=== PATIENT | male | born 1995 | race African-American/Black ===

== ENCOUNTER 2024-09-20 18:04 | Inpatient (IN) ==
--- NOTE | 2024-09-20 18:17 | Emergency Department Note ---
Impression & Plan Atrial fibrillation with rapid ventricular response, Chest pain, Shortness of breath, Elevated troponin ED Provider Note HISTORY OF PRESENT ILLNESS: Patient is a 29-year-old male presenting with chest pain and shortness of breath. Patient presents from nursing home where he states that at 9:40 AM he was out in the yard when he suddenly got the sensation that his heart was racing and he felt very short of breath. He thought that maybe he was just having an asthma attack and had requested to go to medical but was unable to get there until around 1600 secondary to a nursing home lockdown. At 1654 the patient was seen in the [facility] and an EKG was obtained which showed the patient was in A-fib with RVR. Patient reports he has no history of atrial fibrillation. EMS was called. On arrival to the ER, the patient reports he still has the sensation that his heart is racing and he feels very short of breath. He states his only medical history is asthma. He is not take any medications daily. Denies any changes in medications or [id number] medications. Denies any recreational drug use. He is complaining of some left-sided chest pain. Denies any abdominal pain, nausea or vomiting. Denies any recent fevers, dysuria or abdominal pain. Patient was given 324 mg of aspirin and 1 nitro prehospital with EMS. ROS: as above PHYSICAL EXAM: Constitutional: Patient appears in no acute distress. HENT: Head: Normocephalic and atraumatic. Eyes: EOMI, PERRL Mouth/Throat: Mucous membranes moist. Neck: Trachea midline. Neck supple. Cardiovascular: Tachycardic with irregularly irregular rhythm. No murmurs, rubs or gallops. Intact distal pulses. Pulmonary/Chest: No respiratory distress. Breath sounds clear and equal bilaterally. No wheezes or rales. Abdominal: Abdomen soft, no tenderness, rebound or guarding. Musculoskeletal: No edema, tenderness or deformity noted. Skin: Warm and dry. No rash, erythema, pallor or cyanosis Psychiatric: Appropriate mood and affect for situation. Neurological: Alert and keenly responsive. CN II-XII grossly intact, moving all extremities equally and fully. MDM: - Vitals signs showed tachycardia. - History obtained via patient. History as above. - Chronic conditions affecting care: asthma - Differential diagnoses include, but are not limited to: Electrolyte abnormality; hypothyroidism or hyperthyroidism; dysrhythmia; ACS - Order placed for continuous cardiac monitoring. At this time, monitor showed rate of 135 bpm with irregular rhythm, per my interpretation. - External medical records reviewed. EKG image obtained at [facility] better at 1654 was reviewed by myself. EKG showed atrial fibrillation with a rate of 136 BPM. No acute ischemic changes, though EKG is reading "acute [place]." - EKG image interpreted by myself showed atrial fibrillation with rapid ventricular response. Rate 132 bpm. QT 380. No acute ischemic changes. - Laboratory workup interpreted by myself showed normal WBC; stable electrolytes; hyperglycemia (glucose 140) with normal anion gap; slightly elevated troponin (23.9); normal lipase - CXR image reviewed by myself is new for pneumonia, per my interpretation. - Patient's HR up to 130-140 bpm with irregular rhythm. He is initially given a 10 mg IV Cardizem bolus and 1 L normal saline. However, heart rate remained over 120 bpm and irregular. He was given additional 10 mg IV Cardizem bolus and started on a Cardizem drip. Heart rate still tachycardic but has improved to the low 100s - Given patient's young age and first Afib with RVR status, will admit for further cardiac workup. - NSTEMI likely type II due to demand ischemia from his tachycardia. - Discussion was had with case specialist about patient's case and need for admission - Hospitalist, Dr. Givens, consulted for admission - Patient admitted to [facility] service for further evaluation and management. I have personally spent 61 minutes of critical care time in the direct management of this patient. This includes bedside care, interpretation of diagnostic studies, and testing, discussion with consultants, patient, and family members, and other required patient management activities. This 61 minutes is in excess of all separately billable procedures. ASSESSMENT AND PLAN: Diagnosis: Atrial fibrillation with rapid ventricular rate; chest pain; shortness of breath; elevated troponin Plan: admit Past Med/Surg History Problem List (Updated 09/20/24 @ 19:23 by Roslyn Hernandez MD) Elevated troponin (Acute) Shortness of breath (Acute) Chest pain (Acute) Atrial fibrillation with rapid ventricular response (Acute) Social History Smoking Status: Current every day smoker Tobacco Type: E-cigarettes / Vaping Preferred Language: [place] Feels Safe at Home: Yes Allergies Allergies Allergy/AdvReac Type Severity Reaction Status Date / Time No Known Allergies Allergy Unverified 09/20/24 19:12 Home Meds Home Medications Medication Instructions Recorded Confirmed No Known Home Medications 09/20/24 09/20/24 Results & Data (ED) Vital Signs Vital Signs - 24 hr 09/20/24 18:15 09/20/24 18:26 09/20/24 18:26 Temperature 36.6 C Temperature Source Oral Pulse Rate 136 H 137 H Pulse Rate [Right Finger] Pulse Rate from SpO2 Sensor 133 H Respiratory Rate 20 18 Respiratory Effort / Characteristics Spontaneous Short of Breath Non-Labored Spontaneous SOB on Exertion Respiratory Depth Normal Normal Respiratory Pattern Regular Blood Pressure 122/101 H 112/78 Blood Pressure [Right Arm] Blood Pressure Mean 108 89 Blood Pressure Mean [Right Arm] Pulse Oximetry 100 99 Oxygen Delivery Method Room Air Sepsis Recent Fever Within 48 Hours No Sepsis New/Unexplained Change in Mental Status No Sepsis Action Taken by Nursing No Action Required 09/20/24 18:32 09/20/24 18:35 09/20/24 18:42 Temperature Temperature Source Pulse Rate 133 H 103 H Pulse Rate [Right Finger] 132 H Pulse Rate from SpO2 Sensor 106 H Respiratory Rate 22 Respiratory Effort / Characteristics Respiratory Depth Respiratory Pattern Blood Pressure Blood Pressure [Right Arm] Blood Pressure Mean Blood Pressure Mean [Right Arm] Pulse Oximetry 100 Oxygen Delivery Method Sepsis Recent Fever Within 48 Hours Sepsis New/Unexplained Change in Mental Status Sepsis Action Taken by Nursing 09/20/24 19:27 Temperature Temperature Source Pulse Rate Pulse Rate [Right Finger] 99 H Pulse Rate from SpO2 Sensor Respiratory Rate 18 Respiratory Effort / Characteristics Respiratory Depth Respiratory Pattern Blood Pressure Blood Pressure [Right Arm] 145/92 H Blood Pressure Mean Blood Pressure Mean [Right Arm] 109 Pulse Oximetry 99 Oxygen Delivery Method Sepsis Recent Fever Within 48 Hours Sepsis New/Unexplained Change in Mental Status Sepsis Action Taken by Nursing Laboratory Data 09/20/24 18:15 09/20/24 18:15 Lab Results 09/20/24 Range/Units 18:15 WBC 7.73 (4.8-10.8) K/ul RBC 5.17 (4.70-6.10) M/uL Hgb 15.7 (14.0-18.0) g/dl Hct 44.8 (42.0-52.0) % MCV 86.7 (80.0-100.0) fL MCH 30.4 (25.0-34.0) pg MCHC 35.0 (32.0-36.0) g/dL RDW Std Deviation 43.6 (36.4-46.3) fL RDW Coeff of Damian 13.7 (11.5-14.5) % Plt Count 193 (130-400) K/uL MPV 10.2 (9.4-12.4) fL Immature Gran % (Auto) 0.1 % Neut % (Auto) 59.9 % Lymph % (Auto) 29.5 % [place] % (Auto) 5.6 % Eos % (Auto) 4.3 % Baso % (Auto) 0.6 % Neut # (Auto) 4.63 (1.40-6.50) K/uL Lymph # (Auto) 2.28 (1.20-3.40) K/uL [place] # (Auto) 0.43 (0.11-0.59) K/uL Eos # (Auto) 0.33 (0.00-0.50) K/uL Baso # (Auto) 0.05 (0.00-0.20) K/uL Immature Gran # (Auto) 0.01 (0.01-0.20) K/uL Tear Drop Cells 2+ PT 11.8 (9.0-12.0) Seconds INR 1.1 (0.9-1.1) Sodium 139 (136-145) mmol/L Potassium 4.7 (3.5-5.1) mmol/L Chloride 111 H (98-107) mmol/L Carbon Dioxide 23 (21-32) mmol/L Anion Gap 5 (3-11) BUN 12 (6-23) mg/dl Creatinine 0.91 (0.6-1.4) mg/dl Est Cr Clr Drug Dosing 99.0 ml/min eGFR 115.56 BUN/Creatinine Ratio 13.2 (10-20) Glucose 140 H (70-99(Fasting)) mg/dl Calcium 8.7 (8.6-10.3) mg/dl Magnesium TNP Total Bilirubin 0.1 L (0.2-1.0) mg/dl AST 17 (13-39) U/L ALT 17 (7-52) U/L Alkaline Phosphatase 88 (34-104) U/L Troponin I High Sens 23.9 H (0-20) pg/ml Total Protein 7.0 (6.0-8.3) gm/dl Albumin 4.2 (3.4-5.0) gm/dl Globulin 2.8 (2.5-4.0) gm/dl Albumin/Globulin Ratio 1.5 (0.9-2) Lipase 59 (11-82) U/L Administered Medications Diltiazem HCl 125 mg/ Dextrose 125 mls @ 5 mls/hr IV .Q24H YURIDIA; Protocol Stop: 10/20/24 18:29 Last Admin: 09/20/24 18:47 Dose: 5 mg/hr, 5 mls/hr Documented By: MR Co-signed By: QGV Discontinued Medications Diltiazem HCl (Diltiazem Hcl 5 Mg/Ml 5 Ml Vial) 10 mg IV NOW STA Stop: 09/20/24 18:16 Last Admin: 09/20/24 18:21 Dose: 10 mg Documented By: MR Co-signed By: QGV Diltiazem HCl (Diltiazem Hcl 5 Mg/Ml 5 Ml Vial) 10 mg IV NOW STA Stop: 09/20/24 18:30 Last Admin: 09/20/24 18:34 Dose: 10 mg Documented By: MR Co-signed By: ANETA Sodium Chloride (Nss) 1,000 mls @ 999 mls/hr IV .Q1H1M ONE Stop: 09/20/24 19:15 Last Infusion: 09/20/24 19:34 Dose: Infused Documented By: Admin: 09/20/24 18:21 Dose: 999 mls/hr Documented By: Miscellaneous (Stat Iv Infusion Titration Per Protocol) 1 each N/A NOW STA Stop: 09/20/24 18:30 Last Admin: 09/20/24 19:34 Dose: 1 each Documented By: KRISTA Imaging Data Radiologist's Impression: Chest X-Ray 09/20/24 18:15 EXAM: XR chest 1V portable CLINICAL HISTORY: Chest pain, nonspecific TECHNIQUE: X-ray images of the chest were obtained. COMPARISON: No prior studies available for comparison. FINDINGS: Pulmonary Parenchyma: No evidence of consolidation, collapse, or focal opacities. No pulmonary nodules identified. No evidence of pleural effusion or pleural thickening. Heart and Mediastinum: Mild bilateral basal prominent bronchovascular markings. Heart size and shape are normal. No mediastinal widening or masses. No hilar or mediastinal lymphadenopathy. Bony Thorax: Bony thorax appears intact without fractures or deformities. Soft Tissues: Soft tissues overlying the chest wall are unremarkable. IMPRESSION: - Mild bilateral basal prominent bronchovascular markings could be related to lung congestion / early inflammation for clinical and laboratory correlation. - No acute cardiopulmonary abnormalities identified. Electronically signed by Guy Cole 09-20-2024 7:46 PM Discharge Plan Visit Data Chief Complaint: Chest Pain ED Provider: Roslyn Hernandez Discharge Problem: Atrial fibrillation with rapid ventricular response, Chest pain, Shortness of breath, Elevated troponin Condition: Fair Forms Stand Alone Forms: [employer] [facility] [employer] Prescriptions Prescriptions: No Action No Known Home Medications Referrals Referrals: Cristofer VILLASEÑOR [Primary Care Provider] -
[2024-09-20] MEDS: SODIUM CHLORIDE 0.9% 1,000 ML IV ONE ×2 (18:21→20:00)
[2024-09-20] MEDS: dilTIAZem HCl 5 MG/ML 5 ML VIAL IV STA ×2 (18:21→18:34)
[2024-09-20] MEDS: dilTIAZem HCL 125 MG in DEXTROSE 5% 100 ML IV SCH (18:47)
[2024-09-20 19:02] LABS: Alanine Aminotransferase 17 U/L (7-52); Albumin Globulin Ratio 1.5 (0.9-2); Albumin Level 4.2 gm/dl (3.4-5.0); Alkaline Phosphatase 88 U/L (34-104); Anion Gap 5 (3-11); Aspartate Aminotransferase 17 U/L (13-39); BUN Creatinine Ratio 13.2 (10-20); Bilirubin,Total 0.1 mg/dl (0.2-1.0); Blood Urea Nitrogen 12 mg/dl (6-23); Calcium 8.7 mg/dl (8.6-10.3); Carbon Dioxide 23 mmol/L (21-32); Chloride 111 mmol/L (98-107); Globulin 2.8 gm/dl (2.5-4.0); Glucose 140 mg/dl (70-99(Fasting)); Lipase 59 U/L (11-82); Potassium 4.7 mmol/L (3.5-5.1); Sodium 139 mmol/L (136-145)
[2024-09-20 19:09] LABS: Troponin I High Sensitivity 23.9 pg/ml (0-20)
[2024-09-20 19:13] LABS: Hematocrit (blood only) 44.8 % (42.0-52.0); Hemoglobin 15.7 g/dl (14.0-18.0); Mean Corpuscular Hemoglobin 30.4 pg (25.0-34.0); Mean Corpuscular Volume 86.7 fL (80.0-100.0); Mean Platelet Volume 10.2 fL (9.4-12.4); Platelet Count 193 K/uL (130-400); RDW Coefficient of Variation 13.7 % (11.5-14.5); RDW Standard Deviation 43.6 fL (36.4-46.3); Red Blood Count 5.17 M/uL (4.70-6.10)
[2024-09-20 19:24] LABS: White Blood Count 7.73 K/ul (4.8-10.8)
[2024-09-20 19:25] LABS: Basophils # (auto) 0.05 K/uL (0.00-0.20); Basophils % (auto) 0.6 %; Eosinophils # (auto) 0.33 K/uL (0.00-0.50); Eosinophils % (auto) 4.3 %; Immature Granulocytes # (auto) 0.01 K/uL (0.01-0.20); Immature Granulocytes % (auto) 0.1 %; Lymphocytes # (auto) 2.28 K/uL (1.20-3.40); Lymphocytes % (auto) 29.5 %; Monocytes # (auto) 0.43 K/uL (0.11-0.59); Monocytes % (auto) 5.6 %; Neutrophils # (auto) 4.63 K/uL (1.40-6.50); Neutrophils % (auto) 59.9 %; Tear Drop Cells 2+
[2024-09-20 19:33] LABS: INR 1.1 (0.9-1.1); Prothrombin Time 11.8 Seconds (9.0-12.0)
[2024-09-20] MEDS: STAT IV Infusion **Titration per Protocol STA (19:34)
--- NOTE | 2024-09-20 19:46 | History & Physical Report ---
Date of Service September 20, 2024 Assessment & Plan (1) Atrial fibrillation with rapid ventricular response: Plan: Assessment and plan below following discussion of case with ED provider and reviewing patient history/pertinent normal/abnormal diagnostic test results. New onset A-fib Troponin elevation second to above Bronchial asthma, not in acute exacerbation Admit to PCU Initiate beta-dameon, wean off Cardizem infusion IV heparin for thromboembolic prophylaxis Follow troponin TTE, Cardiology consult re: new onset A-fib DVT prophylaxis. IV heparin Full code Text document was generated using [employer] voice recognition software. It may contain grammatical or spelling errors. Kindly contact undersigned for clarification of any documentation item in question. History of Present Illness Chief Complaint: Chest pain Primary Care Provider: CHARLEEN [place] History obtained from patient and records. Medical history significant for bronchial asthma, ongoing e-cigarette use. Patient had sudden onset achy left-sided chest pain and palpitations while out in the detention yard this morning. No cough. [place] hard to take a deep breath. No prior episodes. Admits to anxiety the last few weeks from not being able to call his family because of disciplinary action. Initial EKG at facility showed rapid A-fib, possible ST elevation MO versus early repolarization. Heart rate 130s upon arrival at the ER. IV Cardizem boluses and infusion initiated at the ER. Patient currently comfortable. Medical History as above Surgical History : Finger surgery Family History : DM Personal/Social history : Occasional e-cigarette use, no EtOH intake, unemployed prior to incarceration Allergies Allergy/AdvReac Type Severity Reaction Status Date / Time No Known Allergies Allergy Unverified 09/20/24 19:12 Home Medications Medication Instructions Recorded Confirmed Type No Known Home Medications 09/20/24 09/20/24 History Past Med/Surg History Problem List (Updated 09/20/24 @ 19:23 by Roslyn Hernandez MD) Elevated troponin (Acute) Shortness of breath (Acute) Chest pain (Acute) Atrial fibrillation with rapid ventricular response (Acute) Social History Smoking Status: Current every day smoker Tobacco Type: E-cigarettes / Vaping Second Hand Exposure: Yes; Do You Dip or Chew Tobacco: No; Tobacco Cessation Education Requested by Patient: No Hx Alcohol Use: No Hx Substance Use: No Preferred Language: Kinyarwanda Communication Ability: Effective [employer] Operator Required: No Beliefs That Will Affect Care: None Current Living Situation: Other Current Living Situation Comment: Jail Other Information That Helps Us Care for You: No Feels Safe at Home: Yes Assistive Devices: None Review of Systems Review of Systems: As per HPI, all other systems reviewed and negative Physical Exam Physical Exam: GENERAL: Comfortable, no respiratory distress SKIN: Normal color, warm HEENT: [place] palpebral conjunctivae, no ptosis, moist buccal mucosa NECK : Supple, no tenderness CHEST : CTA, no tenderness HEART : Irregular, no obvious murmurs ABDOMEN: no distention, nontender EXTREMITIES : No LE swelling/tenderness, palpable pulses, no other conspicuous deformities noted NEUROLOGIC : Coherent, no facial asymmetry, no other gross focality Results & Data Results & Data Vital Signs (Past 12 Hours) Vital Signs Temp Pulse Pulse Resp BP BP Pulse Ox 09/20/24 19:27 99 H 18 145/92 H 99 09/20/24 18:42 103 H 22 100 09/20/24 18:35 133 H 09/20/24 18:32 132 H 09/20/24 18:26 36.6 C 137 H 18 112/78 99 09/20/24 18:15 136 H 20 122/101 H 100 O2 Del Method 09/20/24 19:27 09/20/24 18:42 09/20/24 18:35 09/20/24 18:32 09/20/24 18:26 Room Air 09/20/24 18:15 Laboratory Results Laboratory Results WBC 7.73 K/ul (4.8-10.8) 09/20/24 18:15 RBC 5.17 M/uL (4.70-6.10) 09/20/24 18:15 Hgb 15.7 g/dl (14.0-18.0) 09/20/24 18:15 Hct 44.8 % (42.0-52.0) 09/20/24 18:15 MCV 86.7 fL (80.0-100.0) 09/20/24 18:15 MCH 30.4 pg (25.0-34.0) 09/20/24 18:15 MCHC 35.0 g/dL (32.0-36.0) 09/20/24 18:15 RDW Std Deviation 43.6 fL (36.4-46.3) 09/20/24 18:15 RDW Coeff of Damian 13.7 % (11.5-14.5) 09/20/24 18:15 Plt Count 193 K/uL (130-400) 09/20/24 18:15 MPV 10.2 fL (9.4-12.4) 09/20/24 18:15 Immature Gran % (Auto) 0.1 % 09/20/24 18:15 Neut % (Auto) 59.9 % 09/20/24 18:15 Lymph % (Auto) 29.5 % 09/20/24 18:15 [place] % (Auto) 5.6 % 09/20/24 18:15 Eos % (Auto) 4.3 % 09/20/24 18:15 Baso % (Auto) 0.6 % 09/20/24 18:15 Neut # (Auto) 4.63 K/uL (1.40-6.50) 09/20/24 18:15 Lymph # (Auto) 2.28 K/uL (1.20-3.40) 09/20/24 18:15 [place] # (Auto) 0.43 K/uL (0.11-0.59) 09/20/24 18:15 Eos # (Auto) 0.33 K/uL (0.00-0.50) 09/20/24 18:15 Baso # (Auto) 0.05 K/uL (0.00-0.20) 09/20/24 18:15 Immature Gran # (Auto) 0.01 K/uL (0.01-0.20) 09/20/24 18:15 Tear Drop Cells 2+ 09/20/24 18:15 PT 11.8 Seconds (9.0-12.0) 09/20/24 18:15 INR 1.1 (0.9-1.1) 09/20/24 18:15 Sodium 139 mmol/L (136-145) 09/20/24 18:15 Potassium 4.7 mmol/L (3.5-5.1) 09/20/24 18:15 Chloride 111 mmol/L (98-107) H 09/20/24 18:15 Carbon Dioxide 23 mmol/L (21-32) 09/20/24 18:15 Anion Gap 5 (3-11) 09/20/24 18:15 BUN 12 mg/dl (6-23) 09/20/24 18:15 Creatinine 0.91 mg/dl (0.6-1.4) 09/20/24 18:15 Est Cr Clr Drug Dosing 99.0 ml/min 09/20/24 18:15 eGFR 115.56 09/20/24 18:15 BUN/Creatinine Ratio 13.2 (10-20) 09/20/24 18:15 Glucose 140 mg/dl (70-99(Fasting)) H 09/20/24 18:15 Calcium 8.7 mg/dl (8.6-10.3) 09/20/24 18:15 Magnesium TNP 09/20/24 18:15 Total Bilirubin 0.1 mg/dl (0.2-1.0) L 09/20/24 18:15 AST 17 U/L (13-39) 09/20/24 18:15 ALT 17 U/L (7-52) 09/20/24 18:15 Alkaline Phosphatase 88 U/L (34-104) 09/20/24 18:15 Troponin I High Sens 23.9 pg/ml (0-20) H 09/20/24 18:15 Total Protein 7.0 gm/dl (6.0-8.3) 09/20/24 18:15 Albumin 4.2 gm/dl (3.4-5.0) 09/20/24 18:15 Globulin 2.8 gm/dl (2.5-4.0) 09/20/24 18:15 Albumin/Globulin Ratio 1.5 (0.9-2) 09/20/24 18:15 Lipase 59 U/L (11-82) 09/20/24 18:15 CT chest: No evidence of acute pulmonary embolism. Diagnostic Findings EKG as per my interpretation :Rate 130, A-fib, normal axis, diffuse J-point elevation
--- NOTE | 2024-09-20 19:47 | XRay Report ---
EXAM: XR chest 1V portable CLINICAL HISTORY: Chest pain, nonspecific TECHNIQUE: X-ray images of the chest were obtained. COMPARISON: No prior studies available for comparison. FINDINGS: Pulmonary Parenchyma: No evidence of consolidation, collapse, or focal opacities. No pulmonary nodules identified. No evidence of pleural effusion or pleural thickening. Heart and Mediastinum: Mild bilateral basal prominent bronchovascular markings. Heart size and shape are normal. No mediastinal widening or masses. No hilar or mediastinal lymphadenopathy. Bony Thorax: Bony thorax appears intact without fractures or deformities. Soft Tissues: Soft tissues overlying the chest wall are unremarkable. IMPRESSION: - Mild bilateral basal prominent bronchovascular markings could be related to lung congestion / early inflammation for clinical and laboratory correlation. - No acute cardiopulmonary abnormalities identified. Electronically signed by Guy Cole 09-20-2024 7:46 PM
[2024-09-20] MEDS: METOPROLOL TARTRATE 25 MG TAB PO STA (19:59)
[2024-09-20 20:01] LABS: Magnesium 1.9 mg/dl (1.7-2.4)
[2024-09-20 20:17] LABS: Thyroid Stimulating Hormone 0.633 uIu/ml (0.300-4.500)
[2024-09-20] MEDS ORDERED: oxyCODONE HCL IR 5 MG TAB (IMMEDIATE RELEASE) PO PRN (20:22)
[2024-09-20] MEDS ORDERED: NITROGLYCERIN SL 0.4 MG/TAB TAB SL PRN (20:22)
[2024-09-20] MEDS ORDERED: ACETAMINOPHEN 325 MG TAB PO PRN (20:22)
[2024-09-20] MEDS ORDERED: PROMETHAZINE 6.25 MG/50.25 ML BAG IV PRN (20:22)
[2024-09-20] MEDS ORDERED: LORazepam 0.5 MG TAB PO PRN (20:22)
[2024-09-20] MEDS: OPTIRAY 320 125ml IV ONE (20:52)
[2024-09-20 21:21] LABS: Amphetamines+Metham, Urine Neg (Neg); Barbiturates, Urine Neg (Neg); Benzodiazepine, Urine Neg (Neg); Cocaine, Urine Neg (Neg); Fentanyl, Urine Neg (Neg); MDMA (Ecstacy), Urine Neg (Neg); Marijuana, Urine Neg (Neg); Methadone, Urine Neg (Neg); Opiate, Urine Neg (Neg); Phencyclidine, Urine Neg (Neg)
[2024-09-20] MEDS: MAGNESIUM SULFATE / D5W 1 GM/100 ML BAG IV ONE (21:54)
[2024-09-20] MEDS: HEPARIN 25000 UNIT/500 ML D5W 25,000 UNITS/500 ML BAG IV SCH (21:59)
[2024-09-20] MEDS: Heparin IV Adult Wt-Based Standard *NO* INITIAL Bolus Protocol IV STA (21:59)
[2024-09-20] MEDS: METOPROLOL TARTRATE 25 MG TAB PO SCH (22:52)
--- NOTE | 2024-09-20 22:56 | CT Scan Report ---
Exam(s): CTA CHEST IV Amt: 115 ml optiray 320 EXAM: CT Angiography Chest With Intravenous Contrast CLINICAL HISTORY: Reason for exam: cp. TECHNIQUE: Axial computed tomographic angiography images of the chest with intravenous contrast. CTDI is 34.48 mGy and DLP is 621.74 mGy-cm. Automated exposure control was utilized for the study. A dose lowering technique was utilized adhering to the principles of ALARA. MIP reconstructed images were created and reviewed. COMPARISON: No relevant prior studies available. FINDINGS: Pulmonary arteries: No evidence of acute pulmonary embolism. Aorta: No thoracic aortic aneurysm. Lungs: No mass. No consolidation. Pleural space: No significant effusion. No pneumothorax. Heart: No cardiomegaly. No significant pericardial effusion. Bones/joints: No acute fracture. No dislocation. Soft tissues: Unremarkable. Lymph nodes: No enlarged lymph nodes. IMPRESSION: No evidence of acute pulmonary embolism. Electronically signed by: Izabella Tyler M.D. 09/20/24 22:55 PM
[2024-09-21 04:35] LABS: Basophils # (auto) 0.04 K/uL (0.00-0.20); Basophils % (auto) 0.5 %; Eosinophils % (auto) 3.6 %; Hematocrit (blood only) 45.5 % (42.0-52.0); Hemoglobin 15.8 g/dl (14.0-18.0); Immature Granulocytes # (auto) 0.01 K/uL (0.01-0.20); Immature Granulocytes % (auto) 0.1 %; Lymphocytes # (auto) 2.95 K/uL (1.20-3.40); Lymphocytes % (auto) 35.2 %; Mean Corpuscular Hgb Conc 34.7 g/dL (32.0-36.0); Mean Corpuscular Volume 86.3 fL (80.0-100.0); Mean Platelet Volume 10.4 fL (9.4-12.4); Monocytes # (auto) 0.51 K/uL (0.11-0.59); Monocytes % (auto) 6.1 %; Neutrophils # (auto) 4.56 K/uL (1.40-6.50); Neutrophils % (auto) 54.5 %; Platelet Count 184 K/uL (130-400); RDW Coefficient of Variation 13.4 % (11.5-14.5); RDW Standard Deviation 42.5 fL (36.4-46.3); Red Blood Count 5.27 M/uL (4.70-6.10); White Blood Count 8.37 K/ul (4.8-10.8)
[2024-09-21 04:49] LABS: BUN Creatinine Ratio 10.1 (10-20); Calcium 8.8 mg/dl (8.6-10.3); Creatinine Clr Calc Pharmacy 131.1 ml/min; Potassium 3.8 mmol/L (3.5-5.1)
[2024-09-21 05:01] LABS: ANTI-Xa, UFH(UnfractionatedHep 0.58 IU/ml (0.3-0.7)
[2024-09-21 05:19] LABS: Troponin I High Sensitivity 13.6 pg/ml (0-20)
--- NOTE | 2024-09-21 08:17 | Hospitalist Progress Note ---
Date of Service September 21, 2024 Assessment & Plan (1) Atrial fibrillation with rapid ventricular response: Plan: Assessment and plan New onset A-fib/ flutter presents w/ RVR Troponin elevation secondary to above Started on cardizem infusion in ED Started on beta dameon - metoprolol on admission IV heparin for thromboembolic prophylaxis Troponin 23-> 27 -> 13 TTE obtained - mild concentric LVH, LV wall motion normal, LV syst. function normal, LV EF 55-60% Cardiology consulted - continue IV diltiazem and oral metoprolol. Proceed with flecainide 200 mg x 1 now. Chronic conditions Hx of Bronchial asthma, not in acute exacerbation DVT prophylaxis. IV heparin Full code Admission and Anticipated Discharge Date Admission Date: September 20, 2024 Subjective Pt seen in follow up for Afib/flutter w/ RVR Started yesterday AM, presented w/ chest pain Started on IV heparin, cardizem on admission Now pt feels well, no chest pain, no shortness of breath also denies any dizziness, lightheadedness No abd.pain, n/v, no urinary symptoms Pt not aware of any family hx of cardiac disease [facility] - pt there since 2019, no significant medical problems identified, pt has some occasional headaches Cardiology consulted - continue IV diltiazem and oral metoprolol. Proceed with flecainide 200 mg x 1 now. Review of Systems Review of Systems: All systems reviewed & are unremarkable except as noted in Subjective Physical Exam Physical Exam: GENERAL: WD/WN young M in NAD SKIN: Normal color, warm HEENT: NC/AT NECK : Supple CHEST : CTAB HEART : regular, no obvious murmurs ABDOMEN: no distention, nontender EXTREMITIES : No LE swelling/tenderness NEUROLOGIC : Coherent, no facial asymmetry, answers appropriately, moves extremities Results & Data Results & Data Vital Signs (Past 12 Hours) Vital Signs Temp Pulse Pulse Resp BP Pulse Ox Pulse Ox 09/21/24 07:38 36.8 C 69 18 113/78 99 09/21/24 03:06 36.4 C L 69 18 115/76 99 09/20/24 22:52 70 24 107/79 99 09/20/24 21:54 71 09/20/24 21:15 89 20 121/92 99 09/20/24 21:15 99 09/20/24 21:15 89 20 121/92 99 09/20/24 20:31 94 H 18 113/73 O2 Del Method O2 Del Method 09/21/24 07:38 Room Air 09/21/24 03:06 Room Air 09/20/24 22:52 Room Air 09/20/24 21:54 09/20/24 21:15 Room Air 09/20/24 21:15 Room Air 09/20/24 21:15 Room Air 09/20/24 20:31 Laboratory Results 09/21/24 09/20/24 09/20/24 Range/Units 03:58 23:40 20:45 WBC 8.37 (4.8-10.8) K/ul RBC 5.27 (4.70-6.10) M/uL Hgb 15.8 (14.0-18.0) g/dl Hct 45.5 (42.0-52.0) % MCV 86.3 (80.0-100.0) fL MCH 30.0 (25.0-34.0) pg MCHC 34.7 (32.0-36.0) g/dL RDW Std Deviation 42.5 (36.4-46.3) fL RDW Coeff of Damian 13.4 (11.5-14.5) % Plt Count 184 (130-400) K/uL MPV 10.4 (9.4-12.4) fL Immature Gran % (Auto) 0.1 % Neut % (Auto) 54.5 % Lymph % (Auto) 35.2 % Smyth % (Auto) 6.1 % Eos % (Auto) 3.6 % Baso % (Auto) 0.5 % Neut # (Auto) 4.56 (1.40-6.50) K/uL Lymph # (Auto) 2.95 (1.20-3.40) K/uL Smyth # (Auto) 0.51 (0.11-0.59) K/uL Eos # (Auto) 0.30 (0.00-0.50) K/uL Baso # (Auto) 0.04 (0.00-0.20) K/uL Immature Gran # (Auto) 0.01 (0.01-0.20) K/uL Tear Drop Cells PT (9.0-12.0) Seconds INR (0.9-1.1) Heparin Anti-Xa, Unfract 0.58 (0.3-0.7) IU/ml Sodium 140 (136-145) mmol/L Potassium 3.8 (3.5-5.1) mmol/L Chloride 109 H (98-107) mmol/L Carbon Dioxide 25 (21-32) mmol/L Anion Gap 6 (3-11) BUN 8 (6-23) mg/dl Creatinine 0.79 (0.6-1.4) mg/dl Est Cr Clr Drug Dosing 131.1 ml/min eGFR 121.80 BUN/Creatinine Ratio 10.1 (10-20) Glucose 88 (70-99(Fasting)) mg/dl Calcium 8.8 (8.6-10.3) mg/dl Magnesium Total Bilirubin (0.2-1.0) mg/dl AST (13-39) U/L ALT (7-52) U/L Alkaline Phosphatase (34-104) U/L Troponin I High Sens 13.6 D (0-20) pg/ml Total Protein (6.0-8.3) gm/dl Albumin (3.4-5.0) gm/dl Globulin (2.5-4.0) gm/dl Albumin/Globulin Ratio (0.9-2) Lipase (11-82) U/L TSH (0.300-4.500) uIu/ml Nasal Screen MRSA (PCR) Negative (Negative) Urine Opiates Screen Neg (Neg) Ur Methadone, Qual Neg (Neg) Urine Fentanyl Screen Neg (Neg) Urine Barbiturates Neg (Neg) Ur Phencyclidine (PCP) Neg (Neg) U Amphetamin/Meth Scrn Neg (Neg) MDMA (Ecstasy) Screen Neg (Neg) U Benzodiazepines Scrn Neg (Neg) Ur Cocaine Metabolite Neg (Neg) U Marijuana (THC) Screen Neg (Neg) 09/20/24 09/20/24 09/20/24 Range/Units 20:34 19:22 18:15 WBC 7.73 (4.8-10.8) K/ul RBC 5.17 (4.70-6.10) M/uL Hgb 15.7 (14.0-18.0) g/dl Hct 44.8 (42.0-52.0) % MCV 86.7 (80.0-100.0) fL MCH 30.4 (25.0-34.0) pg MCHC 35.0 (32.0-36.0) g/dL RDW Std Deviation 43.6 (36.4-46.3) fL RDW Coeff of Damian 13.7 (11.5-14.5) % Plt Count 193 (130-400) K/uL MPV 10.2 (9.4-12.4) fL Immature Gran % (Auto) 0.1 % Neut % (Auto) 59.9 % Lymph % (Auto) 29.5 % Smyth % (Auto) 5.6 % Eos % (Auto) 4.3 % Baso % (Auto) 0.6 % Neut # (Auto) 4.63 (1.40-6.50) K/uL Lymph # (Auto) 2.28 (1.20-3.40) K/uL Smyth # (Auto) 0.43 (0.11-0.59) K/uL Eos # (Auto) 0.33 (0.00-0.50) K/uL Baso # (Auto) 0.05 (0.00-0.20) K/uL Immature Gran # (Auto) 0.01 (0.01-0.20) K/uL Tear Drop Cells 2+ PT 11.8 (9.0-12.0) Seconds INR 1.1 (0.9-1.1) Heparin Anti-Xa, Unfract (0.3-0.7) IU/ml Sodium 139 (136-145) mmol/L Potassium 4.7 (3.5-5.1) mmol/L Chloride 111 H (98-107) mmol/L Carbon Dioxide 23 (21-32) mmol/L Anion Gap 5 (3-11) BUN 12 (6-23) mg/dl Creatinine 0.91 (0.6-1.4) mg/dl Est Cr Clr Drug Dosing 99.0 ml/min eGFR 115.56 BUN/Creatinine Ratio 13.2 (10-20) Glucose 140 H (70-99(Fasting)) mg/dl Calcium 8.7 (8.6-10.3) mg/dl Magnesium 1.9 TNP Total Bilirubin 0.1 L (0.2-1.0) mg/dl AST 17 (13-39) U/L ALT 17 (7-52) U/L Alkaline Phosphatase 88 (34-104) U/L Troponin I High Sens 27.1 H 23.9 H (0-20) pg/ml Total Protein 7.0 (6.0-8.3) gm/dl Albumin 4.2 (3.4-5.0) gm/dl Globulin 2.8 (2.5-4.0) gm/dl Albumin/Globulin Ratio 1.5 (0.9-2) Lipase 59 (11-82) U/L TSH 0.633 (0.300-4.500) uIu/ml Nasal Screen MRSA (PCR) (Negative) Urine Opiates Screen (Neg) Ur Methadone, Qual (Neg) Urine Fentanyl Screen (Neg) Urine Barbiturates (Neg) Ur Phencyclidine (PCP) (Neg) U Amphetamin/Meth Scrn (Neg) MDMA (Ecstasy) Screen (Neg) U Benzodiazepines Scrn (Neg) Ur Cocaine Metabolite (Neg) U Marijuana (THC) Screen (Neg) Medications Administered Current Inpatient Medications Acetaminophen (Acetaminophen 325 Mg Tab) 650 mg PO QID PRN PRN Reason: pain/fever Stop: 10/20/24 20:21 Diltiazem HCl 125 mg/ Dextrose 125 mls @ 5 mls/hr IV .Q24H YURIDIA; Protocol Stop: 10/20/24 18:29 Last Titration: 09/21/24 06:56 Dose: 5 mg/hr, 5 mls/hr Sodium Chloride (Nss) 1,000 mls @ 60 mls/hr IV .[id number] ONE Stop: 09/21/24 12:21 Last Infusion: 09/20/24 22:54 Dose: 60 mls/hr Heparin Sodium/Dextrose (Heparin 36268 Unit/500 Ml D5w) 25,000 units in 500 mls @ 25 mls/hr IV .Q20H YURIDIA; Protocol Stop: 10/20/24 20:44 Last Titration: 09/21/24 06:55 Dose: 1,250 units/hr, 25 mls/hr Promethazine HCl (Phenergan) 6.25 mg in 50.25 mls @ 201 mls/hr IV Q6H PRN PRN Reason: Nausea And Vomiting Stop: 10/20/24 20:21 Lorazepam (Lorazepam 0.5 Mg Tab) 0.5 mg PO TID PRN PRN Reason: Anxiety Stop: 10/20/24 20:21 Metoprolol Tartrate (Metoprolol Tartrate 25 Mg Tab) 25 mg PO BID YURIDIA Stop: 10/20/24 20:59 Last Admin: 09/20/24 22:52 Dose: 25 mg Nitroglycerin (Nitroglycerin Sl 0.4 Mg/Tab Tab) 0.4 mg SL Q5M PRN PRN Reason: Chest Pain Stop: 10/20/24 20:21 Oxycodone HCl (Oxycodone Hcl Ir 5 Mg Tab (Immediate Release)) 5 mg PO Q4H PRN PRN Reason: Pain Stop: 10/04/24 20:21
[2024-09-21 08:47] LABS: Magnesium 2.2 mg/dl (1.7-2.4)
[2024-09-21 09:01] LABS: Appearance Urine Clear (Clear); Bilirubin Urine Negative (Negative); Blood Urine Negative (Negative); Color Urine Yellow; Glucose Urine UA Negative (Negative); Ketones Urine Negative (Negative); Leukocyte Esterase Urine Negative (Negative); Nitrite Urine Negative (Negative); Protein Urine Negative (Negative); Specific Gravity Urine 1.008 (1.000-1.030); Urobilinogen Urine Negative (Negative)
--- NOTE | 2024-09-21 10:54 | Cardiology Consultation ---
Date of Consultation September 21, 2024 Assessment & Plan (1) Atrial fibrillation with rapid ventricular response: Atrial fibrillation / flutter. Duration as of now just over 24 hours since onset of symptoms. Mild troponin elevation due to elevated rate. Mild concentric LVH on echocardiogram, otherwise not significant structural heart disease. Mild troponin elevation likely related to hours of tachycardia prior to contact with medical care. Continue heparin for stroke prevention. Discussed options with the patient with regards to ongoing medical therapy with attempt at chemical cardioversion or EVELIO guided DCCV. Patient prefers trial of medication before EVELIO guided DCCV. Will continue IV diltiazem and oral metoprolol. Proceed with flecainide 200 mg x 1 now. Keep NPO pending administration of flecainide. John Monsivais DO History of Present Illness Attending Physician: Kendall Peterson MD History of Present Illness Mr Sales is a 29 year old black male seen in cardiology consultation per the request of Dr Givens for the evaluation of atrial fibrillation / flutter. The patient notes on set of rapid and irregular heart rate yesterday at 9:30-9:40 am. He denies associated chest pain, shortness of breath, lightheadedness or dizziness. EKG performed at the [facility] revealed atrial fibrillation with rapid ventricular response which was confirmed on arrival to the emergency department. Patient has received IV heparin infusion, IV ditiazem with infusion curently at 5 mg /hr, and oral metoprolol. Repeat EKG and telemetry reveal rate controlled atrial flutter with rate in the 60s to 70s. Currently asymptomatic. This is his first episodes of these symptoms. Denies illicit drug use. PMH : Asthma Family History: No history of heart issues in his mother, father, or sister Social History: incarcerated smoker Allergies Allergy/AdvReac Type Severity Reaction Status Date / Time No Known Allergies Allergy Unverified 09/20/24 19:12 Home Medications Medication Instructions Recorded Confirmed Type No Known Home Medications 09/20/24 09/20/24 History Patient History Social History Smoking Status: Current every day smoker Tobacco Type: E-cigarettes / Vaping Second Hand Exposure: Yes; Do You Dip or Chew Tobacco: No; Tobacco Cessation Education Requested by Patient: No Hx Alcohol Use: No Hx Substance Use: No Preferred Language: Kiswahili Communication Ability: Effective Inverform Machine Operator Required: No Beliefs That Will Affect Care: None Current Living Situation: Other Current Living Situation Comment: Skilled Nursing Other Information That Helps Us Care for You: No Feels Safe at Home: Yes Assistive Devices: None Review of Systems Review of Systems: All systems reviewed & are unremarkable except as noted in HPI & below Physical Exam Physical Exam: General: no acute distress and stated age Eyes: conjunctiva are pink and non-injected, sclera clear Neck: normal jugular venous pulse, no hepatojugular reflux Chest: normal shape and normal respiratory effort Lungs: clear to auscultation and percussion Cardiac Exam: - regular, tachycardic Abdomen: abdomen soft, non-tender, no abnormal masses and no hepatosplenomegaly Musculoskeletal: no gait disturbance, no weakness Extremities: no edema and no cyanosis Neuro:awake, conversant, follows commands, no focal motor deficits Psych: appropriate affect and insight. Results & Data Vital Signs (Past 12 Hours) Vital Signs Temp Pulse Pulse Resp BP Pulse Ox O2 Del Method 09/21/24 10:43 36.6 C 68 16 112/77 98 Room Air 09/21/24 09:10 69 09/21/24 07:38 36.8 C 69 18 113/78 99 Room Air 09/21/24 03:06 36.4 C L 69 18 115/76 99 Room Air 09/20/24 22:52 70 24 107/79 99 Room Air Laboratory Results Cardiac Enzymes 09/20/24 09/20/24 09/21/24 Range/Units 18:15 20:34 03:58 AST 17 (13-39) U/L Troponin I High Sens 23.9 H 27.1 H 13.6 D (0-20) pg/ml Coagulation 09/20/24 Range/Units 18:15 PT 11.8 (9.0-12.0) Seconds CBC 09/20/24 09/21/24 Range/Units 18:15 03:58 WBC 7.73 8.37 (4.8-10.8) K/ul RBC 5.17 5.27 (4.70-6.10) M/uL Hgb 15.7 15.8 (14.0-18.0) g/dl Hct 44.8 45.5 (42.0-52.0) % Plt Count 193 184 (130-400) K/uL Neut # (Auto) 4.63 4.56 (1.40-6.50) K/uL Lymph # (Auto) 2.28 2.95 (1.20-3.40) K/uL [place] # (Auto) 0.43 0.51 (0.11-0.59) K/uL Eos # (Auto) 0.33 0.30 (0.00-0.50) K/uL Baso # (Auto) 0.05 0.04 (0.00-0.20) K/uL Comprehensive Metabolic Panel 09/20/24 09/21/24 Range/Units 18:15 03:58 Sodium 139 140 (136-145) mmol/L Potassium 4.7 3.8 (3.5-5.1) mmol/L Chloride 111 H 109 H (98-107) mmol/L Carbon Dioxide 23 25 (21-32) mmol/L BUN 12 8 (6-23) mg/dl Creatinine 0.91 0.79 (0.6-1.4) mg/dl Glucose 140 H 88 (70-99(Fasting)) mg/dl Calcium 8.7 8.8 (8.6-10.3) mg/dl AST 17 (13-39) U/L ALT 17 (7-52) U/L Alkaline Phosphatase 88 (34-104) U/L Total Protein 7.0 (6.0-8.3) gm/dl Albumin 4.2 (3.4-5.0) gm/dl Intake and Output 09/20/24 09/21/24 09/21/24 22:59 06:59 14:59 Intake Total 1155.333 / 2121.083 965.750 / 2121.083 Output Total 1700 / 1700 650 / 650 Balance 1155.333 / 421.083 -734.250 / 421.083 -650 / -650 Intake: IV 1155.333 / 1521.083 365.750 / 1521.083 Heparin 83511 Unit/500 ml D5w 223.333 / 223.333 25,000 units In 500 ml @ 1,250 UNITS/HR 25 mls/hr IV .Q20H COUNTS INCLUDE 234 BEDS AT THE [facility] Rx#:[id number] Magnesium Sulfate / D5w 1 gm In 18.333 / 100.000 81.667 / 100.000 100 ml @ 50 mls/hr IV ONE ONE Rx#:[id number] Sodium Chloride 0.9% 1,000 ml @ 1137 / 1137 60 mls/hr IV .[id number] ONE Rx#: [id number] dilTIAZem HCL 125 mg In 60.75 / 60.75 Dextrose 5% 100 ml @ 5 MG/HR 5 mls/hr IV .Q24H COUNTS INCLUDE 234 BEDS AT THE [facility] Rx#: [id number] Oral 600 / 600 Output: Urine 1400 / 1400 650 / 650 Other 300 / 300 Other: # Unmeasured Voids 3 Weight 74.5 kg 74.5 kg Weight Measurement Method Standing Scale Standing Scale Diagnostic Findings Echocardiogram: mild concentric LVH, normal LVEF EKG x 2 with diffuse J point elevation consistent with early repolarization
[2024-09-21] MEDS: FLECAINIDE ACETATE 100 MG TABLET PO ONE ×2 (11:12→14:54)
--- NOTE | 2024-09-21 16:37 | Communication Note ---
Date of Service: September 21, 2024 Pt remains in AF/ AFlutter. Additional dose of flecainide administered for total of 300 mg today which is the maximum dose. Continue heparin infusion. Continue diltiazem infusion at 5 mg /hr. Give extra dose of metoprolol tartrate 25 mg by mouth x 1 now, next dose at 2100. NPO after MN for EVELIO CV. John Monsivais DO
[2024-09-21] MEDS: METOPROLOL TARTRATE 25 MG TAB PO STA (16:53)
[2024-09-21] MEDS: MELATONIN 3 MG TAB PO PRN (20:29)
--- NOTE | 2024-09-21 21:38 | Communication Note ---
Date of Service: September 21, 2024 Patient with episodic bradycardia, heart rate 50s on Cardizem infusion. SBP 160s as per RN. Hold Cardizem infusion for now
--- NOTE | 2024-09-21 21:53 | Electrocardiogram Report ---
Test Reason : Blood Pressure : */* mmHG Vent. Rate : 68 BPM Atrial Rate : 272 BPM P-R Int : * ms QRS Dur : 104 ms QT Int : 380 ms P-R-T Axes : 23 66 42 degrees QTcB Int : 404 ms Atrial flutter with 4:1 A-V conduction ST elevation, consider early repolarization, pericarditis, or injury Abnormal ECG When compared with ECG of 20-Sep-2024 18:08, Vent. rate has decreased by 64 bpm Nonspecific T wave abnormality no longer evident in Inferior leads Confirmed by Jose Phillip ([id number]) on 09/21/2024 9:53:32 PM Referred By: Cristofer VILLASEÑOR Confirmed By: Jose Phillip
[2024-09-22 03:23] VITALS: RESP 18
[2024-09-22 06:11] LABS: Hemoglobin 17.3 g/dl (14.0-18.0); Mean Corpuscular Hemoglobin 29.9 pg (25.0-34.0); Mean Corpuscular Hgb Conc 34.6 g/dL (32.0-36.0); Mean Corpuscular Volume 86.5 fL (80.0-100.0); Mean Platelet Volume 10.2 fL (9.4-12.4); Platelet Count 188 K/uL (130-400); RDW Coefficient of Variation 13.8 % (11.5-14.5); RDW Standard Deviation 43.8 fL (36.4-46.3); Red Blood Count 5.78 M/uL (4.70-6.10); White Blood Count 6.32 K/ul (4.8-10.8)
[2024-09-22 06:29] LABS: BUN Creatinine Ratio 11.5 (10-20); Calcium 9.4 mg/dl (8.6-10.3); Magnesium 2.1 mg/dl (1.7-2.4); Phosphorus 4.1 mg/dl (2.5-4.9); Potassium 4.4 mmol/L (3.5-5.1)
[2024-09-22 07:24] LABS: ANTI-Xa, UFH(UnfractionatedHep 1.09 IU/ml (0.3-0.7)
--- NOTE | 2024-09-22 07:26 | History & Physical Bridge Note ---
Date of Service September 22, 2024 History & Physical Bridge Note I have examined the patient, reviewed the History & Physical and in the interval since the performance of the History & Physical I have noted the following changes of clinical significance: no changes noted. Patient remains in rate controlled atrial flutter. Will hold diltiazem. Heparin infusion to continue. Proceed with transesophageal echocardiogram guided cardioversion. Informed consent was obtained. Patient elects to proceed. John Monsivais DO
--- NOTE | 2024-09-22 07:28 | Anesthesiology Consultation ---
Date of Service September 22, 2024 Assessment & Plan Chart Review Chart Review: Acceptable Risk for Surgery and Patient NOT seen in Pre Admission Testing Consults Requested none ASA ASA2 Proposed Anesthesia Anesthesia Type: MAC Risk / Benefits Reviewed With: PT / POA / Parent / Guardian, Accepts Plan and Informed Consent Obtained History Surgery Operation Date: 09/22/24 07:45 Proposed Procedures p Transesophageal Echo w/Anesthesia - Karthik Monsivais DO s Cardioversion Meter Shop Supervisor w/Anesthesia - Karthik Monsivais DO Height/Weight Height: 5 ft 8 in Weight: 74.3 kg Allergies Allergy/AdvReac Type Severity Reaction Status Date / Time No Known Allergies Allergy Unverified 09/20/24 19:12 Medications Home Medications Medication Instructions Recorded Confirmed Last Taken No Known Home Medications 09/20/24 09/20/24 Unknown Active Medications Generic Name Dose Route Start Last Admin Trade Name Freq PRN Reason Stop Dose Admin Diltiazem HCl 125 mg/ Dextrose 125 mls @ 0 mls/hr 09/20/24 18:30 09/21/24 21:40 IV 10/20/24 18:29 0 mg/hr .Q0M YURIDIA 0 mls/hr Titration Protocol 0 MG/HR Heparin Sodium/Dextrose 25,000 units in 500 mls @ 25 mls/hr 09/20/24 20:45 09/21/24 19:14 Heparin 99202 Unit/500 Ml D5w IV 10/20/24 20:44 1,250 units/hr .Q20H YURIDIA 25 mls/hr Titration Protocol 1,250 UNITS/HR Melatonin 3 mg 09/21/24 19:58 09/21/24 20:29 Melatonin 3 Mg Tab PO 10/21/24 19:57 3 mg HS PRN Administration Sleep Metoprolol Tartrate 25 mg 09/20/24 21:00 09/21/24 20:29 Metoprolol Tartrate 25 Mg Tab PO 10/20/24 20:59 25 mg BID YURIDIA Administration NPO Date Last Intake of Fluids: 09/21/24 Time Last Intake of Fluids: 16:00 Date Last Intake of Solids: 09/21/24 Time Last Intake of Solids: 16:00 Exercise / Class Metabolic Activity II 4-5 Yardwork/Stairs/Walk up hill Past Anesthesia History No Hx of Anesthesia Complications and No Family Hx of Anesthesia Complications History of PONV No Hx of PONV and No Hx of Motion Sickness Social History Smoking Status: Current every day smoker Do You Dip or Chew Tobacco: No Hx Alcohol Use: No Hx Substance Use: No Physical Exam Vital Signs Last Vital Signs Temp 36.8 C 09/22/24 07:15 Pulse 90 09/22/24 07:15 Resp 18 09/22/24 07:15 BP 105/64 09/22/24 07:15 Pulse Ox 98 09/22/24 07:15 O2 Del Method Room Air 09/22/24 07:15 ENMT Mouth: no dentition abnormality Thyromental Distance: > or= 3.5 Finger Breadths Mallampati Class: II Neck normal visual inspection Respiratory normal respiratory effort Auscultation: lungs clear to auscultation bilaterally Cardiovascular Rate/Rhythm: regular rate; + abnormal rhythm (aflutter on monitor) Psychiatric Orientation: alert Testing Laboratory Results 09/22/24 05:34 09/22/24 05:34 PT 11.8 Seconds (9.0-12.0) 09/20/24 18:15 INR 1.1 (0.9-1.1) 09/20/24 18:15 Urine Color Yellow 09/21/24 08:50 Urine Appearance Clear (Clear) 09/21/24 08:50 Urine pH 6.0 (4.5-7.5) 09/21/24 08:50 Ur Specific [place] 1.008 (1.000-1.030) 09/21/24 08:50 Urine Protein Negative (Negative) 09/21/24 08:50 Urine Glucose (UA) Negative (Negative) 09/21/24 08:50 Urine Ketones Negative (Negative) 09/21/24 08:50 Urine Nitrite Negative (Negative) 09/21/24 08:50 Ur Leukocyte Esterase Negative (Negative) 09/21/24 08:50
[2024-09-22] MEDS ORDERED: PROPOFOL IV EMULSION 10 MG/ML 20 ML VIAL IV ONE (07:59)
--- NOTE | 2024-09-22 08:02 | Post Operative Brief Note ---
Cardiology Brief Post Op Date of Surgery September 22, 2024 Pre & Post Diagnosis Operation Date: 09/22/24 07:45 Procedure Preprocedure diagnosis: Rule out left atrial, left atrial appendage thrombus, symptomatic atrial flutter Post procedure diagnosis: No left atrial/left atrial appendage thrombus. Successful conversion to sinus rhythm Transesophageal echocardiogram direct-current cardioversion procedure note: The patient's vital signs were monitored via the standard fashion. After informed consent was obtained and timeout was performed the patient was sedated with the assistance of the anesthesia service receiving a total of 130 mg of IV propofol and 100 micrograms of IV fentanyl. A focused, goal-directed transesophageal echocardiogram was performed for risk ratification. There was no left atrial appendage thrombus. There was no left atrial thrombus. The patient then underwent direct-current cardioversion receiving a single dose of 150 J of biphasic energy with successful conversion to sinus rhythm. Plan: Transition from heparin to Eliquis 5 mg twice daily to complete at least 1 month of anticoagulation post procedure. Discontinue IV diltiazem. Continue metoprolol tartrate 25 mg twice daily. Gravity Manager Karthik Monsivais DO Imaging System Administrator Inna Dinh, SUSAN Estimated Blood Loss 0 Findings Consistent with Post-Op Diagnosis Anesthesia Type MAC Complications none
--- NOTE | 2024-09-22 08:09 | Anesthesiology Progress Note ---
Date of Service September 22, 2024 Anesthesia Post Procedure Vital Signs Vital Signs: Temp Pulse Pulse Resp BP Pulse Ox O2 Del Method 09/22/24 07:15 36.8 C 90 18 105/64 98 Room Air 09/22/24 03:23 36.5 C 85 18 98/64 L 94 Room Air 09/21/24 23:06 36.5 C 70 16 110/79 98 Room Air 09/21/24 21:57 61 09/21/24 19:38 36.6 C 65 17 116/80 95 Room Air 09/21/24 16:59 78 09/21/24 15:34 36.4 C L 84 18 114/79 98 Room Air 09/21/24 10:43 36.6 C 68 16 112/77 98 Room Air 09/21/24 09:10 69 Transfer of Care Handoff Completed per policy Notes Mental Status: alert / awake / arousable Patient Amnestic to Procedure: Yes Nausea / Vomiting: adequately controlled Pain: adequately controlled Airway Patency, RR, SpO2: stable & adequate BP & HR: stable & adequate Hydration State: stable & adequate Anesthetic Complications: no major complications apparent
[2024-09-22 08:41] VITALS: TEMP 97.7
[2024-09-22] MEDS: APIXABAN 5 MG TABLET PO SCH (09:30)
[2024-09-22] MEDS: BENZOCAINE/TETRACAIN/BUTAM 50 APPLN/5 GM CAN EXT ONE (10:26)
[2024-09-22] MEDS: fentaNYL citrate PF 100 MCG/2 ML VIAL ONE (10:27)
--- NOTE | 2024-09-22 10:49 | Cardiology Progress Note ---
Date of Service September 22, 2024 Assessment & Plan (1) Atrial fibrillation with rapid ventricular response: Plan: Atrial flutter with rapid ventricular response, although rate controlled after addition of IV diltiazem and oral metoprolol, remained in atrial flutter. Received a total of 300 mg of oral flecainide on 09/21/2024 and persistent rate controlled flutter still present this morning. Patient therefore underwent transesophageal echocardiogram guided direct-current cardioversion with restorationism of sinus rhythm. * Heparin discontinued in favor of Eliquis 5 mg twice daily. Would recommend 1 month of anticoagulation post direct-current cardioversion. * Change beta-dameon to metoprolol succinate 12.5 mg daily. Anticipate that [facility], his heart rate will be high enough to support the use of metoprolol. * Stable for discharge from a cardiac perspective today. Outpatient follow-up will be arranged. John Monsivais DO Admission and Anticipated Discharge Date Admission Date: September 20, 2024 Subjective Patient reassessed post transesophageal echocardiogram guided direct-current cardioversion. Sinus bradycardia in the 50s noted on telemetry. Systolic blood pressure in the 90s. Patient without complaint. No focal deficits noted on neurologic exam. Physical Exam Physical Exam: General: no acute distress and stated age Eyes: conjunctiva are pink and non-injected, sclera clear Neck: normal jugular venous pulse, no hepatojugular reflux Chest: normal shape and normal respiratory effort Lungs: clear to auscultation and percussion Cardiac Exam: - regular heart sounds, Bradycardic,no murmurs, rubs, or gallops, no jugular venous distention Abdomen: abdomen soft, non-tender, no abnormal masses and no hepatosplenomegaly Extremities: no edema and no cyanosis Neuro:awake, conversant, follows commands, no focal motor deficits Psych: appropriate affect and insight. Results & Data Vital Signs (Past 12 Hours) Vital Signs Temp Pulse Pulse Resp BP BP Pulse Ox 09/22/24 08:58 36.5 C 57 L 18 92/71 L 97 09/22/24 08:54 48 L 97 09/22/24 08:40 36.5 C 52 L 18 110/76 97 09/22/24 08:33 110/76 09/22/24 08:13 76 18 108/62 96 09/22/24 07:57 81 18 99/57 L 96 09/22/24 07:15 36.8 C 90 18 105/64 98 09/22/24 03:23 36.5 C 85 18 98/64 L 94 09/21/24 23:06 36.5 C 70 16 110/79 98 O2 Del Method 09/22/24 08:58 Room Air 09/22/24 08:54 09/22/24 08:40 Room Air 09/22/24 08:33 09/22/24 08:13 Room Air 09/22/24 07:57 Room Air 09/22/24 07:15 Room Air 09/22/24 03:23 Room Air 09/21/24 23:06 Room Air
[2024-09-22 11:49] VITALS: BP 100/65; PULSE 75; O2SAT 99
--- NOTE | 2024-09-22 12:04 | Discharge Summary ---
Date of Service September 22, 2024 Admission HPI Per Admitting Provider History obtained from patient and records. Medical history significant for bronchial asthma, ongoing e-cigarette use. Patient had sudden onset achy left-sided chest pain and palpitations while out in the [facility] [place] this morning. No cough. Rowe hard to take a deep breath. No prior episodes. Admits to anxiety the last few weeks from not being able to call his family because of disciplinary action. Initial EKG at facility showed rapid A-fib, possible ST elevation AK versus early repolarization. Heart rate 130s upon arrival at the ER. IV Cardizem boluses and infusion initiated at the ER. Patient currently comfortable. Medical History as above Surgical History : Finger surgery Family History : DM Personal/Social history : Occasional e-cigarette use, no EtOH intake, unemployed prior to incarceration Admission Exam Per Admitting Provider GENERAL: Comfortable, no respiratory distress SKIN: Normal color, warm HEENT: [place] palpebral conjunctivae, no ptosis, moist buccal mucosa NECK : Supple, no tenderness CHEST : CTA, no tenderness HEART : Irregular, no obvious murmurs ABDOMEN: no distention, nontender EXTREMITIES : No LE swelling/tenderness, palpable pulses, no other conspicuous deformities noted NEUROLOGIC : Coherent, no facial asymmetry, no other gross focality Principal Diagnosis Atrial fibrillation with rapid ventricular response Discharge Exam GENERAL: WD/WN young M in [place] SKIN: Normal color, warm HEENT: NC/AT NECK : Supple CHEST : CTAB HEART : regular, no obvious murmurs ABDOMEN: no distention, nontender EXTREMITIES : No LE swelling/tenderness NEUROLOGIC : Coherent, no facial asymmetry, answers appropriately, moves extremities Discharge Data Allergies Allergy/AdvReac Type Severity Reaction Status Date / Time No Known Allergies Allergy Unverified 09/20/24 19:12 Consultations 09/20/24 19:32 ED Decision to Admit Stat 09/20/24 21:26 Consult Cardiology Routine 09/21/24 14:05 Consult Anesthesiology Routine Procedures Performed Operation Date: 09/22/24 07:45 Actual Procedures p Echo Transesophageal - DO dallas Allison Cardioversion - DO dallas Allison Echo Color Flow - Karthik Monsivais DO Ordered Studies 09/20/24 20:21 CT angio chest PE protocol Stat FINDINGS: Pulmonary arteries: No evidence of acute pulmonary embolism. Aorta: No thoracic aortic aneurysm. Lungs: No mass. No consolidation. Pleural space: No significant effusion. No pneumothorax. Heart: No cardiomegaly. No significant pericardial effusion. Bones/joints: No acute fracture. No dislocation. Soft tissues: Unremarkable. Lymph nodes: No enlarged lymph nodes. IMPRESSION: No evidence of acute pulmonary embolism. Hospital Course (1) Atrial fibrillation with rapid ventricular response: Assessment and plan New onset A-fib/ flutter presents w/ RVR Troponin elevation secondary to above Started on cardizem infusion in ED Started on beta dameon - metoprolol on admission IV heparin for thromboembolic prophylaxis -> now switched to Eliquis 5mg bid Troponin 23-> 27 -> 13 TTE obtained - mild concentric LVH, LV wall motion normal, LV syst. function normal, LV EF 55-60% Cardiology consulted - initially continued IV diltiazem and oral metoprolol. Also gave flecainide. Pt then underwent electrical cardioversion this AM (09/22/2024) and currently is in sinus rhythm. Per cardiology - * Switched to Eliquis 5 mg twice daily. Would recommend 1 month of anticoagulation post direct-current cardioversion. * Cont. with metoprolol succinate 12.5 mg daily. Anticipate that once he is discharged and back [facility] the [facility], his heart rate will be high enough to support the use of metoprolol. * Stable for discharge from a cardiac perspective today. Outpatient follow-up will be arranged. Discussed w/ physician at [facility] - medications already ordered and pt can continue w/ recommended med. regimen as above. Pt will be discharged back to correctional facility today. Chronic conditions Hx of Bronchial asthma, not in acute exacerbation Total Time Total Time Spent Total Time Spent (In Minutes): 40 Discharge Plan Discharge Items Patient Disposition: [facility] Reason For Visit: AF Discharge Diagnosis: Atrial fibrillation with rapid ventricular response Condition on Discharge: Fair Activity: Per Instructions section Non-emergency contact: Primary Care Provider and Graphics Edit Technician Call non-emergency contact if: you have any medication questions and your symptoms worsen Follow-up/Referrals: Cristofer VILLASEÑOR [Primary Care Provider] - Diet: Regular Addtl Attending Provider Instructions: Follow up with primary care physician and sanitizer. Start taking Eliquis (blood thinner), 5 mg twice a day for a month. Take metoprolol succinate 12.5 mg daily. Pending Studies at Discharge: Yes Studies:: final blood cultx results Stand-Alone Forms: My [facility] Skilled Items Patient informed of condition?: Yes Discharge Level of Care: Other Communicable Disease: No Discharge Prognosis: Stable Lines: None Urinary Catheter: No Medications and DC Order Prescriptions: New Eliquis 5 mg Tablet 5 mg PO BID 30 Days Qty: 60 0RF metoprolol succinate 25 mg Tablet Extended Release 24 Hr 12.5 mg PO QAM Qty: 20 0RF Discharge Orders: Discharge Order (Routine); Ordered 09/22/24 Ordered By: Kendall Peterson Admission Data Admit Date/Time: 09/20/24 19:47 Attending Provider: Kendall Peterson Admit Provider: Nathanael Givens Primary Care Provider: Cristofer VILLASEÑOR Other Providers: Nathanael Givens; Nikia Harrell; Karthik Monsivais; Micah Garcia; Ziyad Ellis; Pierre Treviño; Bill Servin; Brisa Estrella; Magnolia Li; Shobha Harris; Sandra Workman; Nikia Sinclair; Shemar Lucas; Deangelo Nelson; Gini Olivo; Latonia Hernandez; Yue Martinez; Mary Vargas; Dominick Pavon; Catia Mendieta; Carmella Norman; Teo Quigley; Leighann Gomez; Lv Norton
--- NOTE | 2024-09-22 13:31 | Electrocardiogram Report ---
Test Reason : Blood Pressure : */* mmHG Vent. Rate : 52 BPM Atrial Rate : 52 BPM P-R Int : 146 ms QRS Dur : 82 ms QT Int : 416 ms P-R-T Axes : 58 87 57 degrees QTcB Int : 386 ms Sinus bradycardia Possible Left atrial enlargement Borderline ECG When compared with ECG of 21-Sep-2024 06:22, Sinus rhythm has replaced Atrial flutter ST no longer elevated in Anterior leads Nonspecific T wave abnormality now evident in Anterior leads Confirmed by Ralph Dupont ([id number]) on 09/22/2024 1:31:28 PM Referred By: Cristofer SCI Confirmed By: Ralph Dupont
[2024-09-23] MEDS ORDERED: METOPROLOL SUCC 25MG EXT REL TAB PO SCH (09:00)
--- NOTE | 2024-09-26 13:36 | Electrocardiogram Report ---
Test Reason : Blood Pressure : */* mmHG Vent. Rate : 50 BPM Atrial Rate : 50 BPM P-R Int : 148 ms QRS Dur : 88 ms QT Int : 400 ms P-R-T Axes : 29 68 36 degrees QTcB Int : 364 ms Sinus bradycardia Early repolarization Otherwise normal ECG When compared with ECG of 22-Sep-2024 07:55, No significant change was found Confirmed by Art Gutierrez ([id number]) on 09/26/2024 1:35:30 PM Referred By: Cristofer SCI Confirmed By: Art Gutierrez
== END 2024-09-22 15:18 | DRG 310 ==
LOC: ED 18:04 → 2E 19:47 → SUATTDRO 19:47 → 2E 22:36